=== PATIENT | female | born 1990 | race Caucasian/White ===

== ENCOUNTER → 2020-03-15 16:24 | Outpatient (CLI) | payer BC, OTHER, SELFPAY ==
--- NOTE | 2020-03-15 16:33 | XR_ITS ---
PROCEDURE: XR FOOT LT MIN 3V CLINICAL INDICATION: LT FOOT PAIN COMPARISON: No exams were available for comparison FINDINGS: No fracture or dislocation. No lytic or blastic change. There is normal mineralization. The joint spaces are well-preserved. No significant degenerative/arthritic changes. No erosive changes evident. Other findings:None. IMPRESSION: No acute findings. Dictated by: Lion Miranda MD 03/15/2020 17:50 Lion Miranda MD in OV 03/15/2020 17:50
== END ==
PROVIDERS: PCP Nurse Practitioner; Visit Provider Family Medicine
DX: M79.672 Pain in left foot (principal)
CPT/HCPCS: 73630

== ENCOUNTER → 2021-01-01 08:59 | Outpatient (CLI) | payer BC, OTHER, SELFPAY ==
[2021-01-01 09:31] LABS: Adenovirus,PCR Not Detected (NotDetected); Bordetella Pertussis Not Detected (NotDetected); Chlamydophila Pneumoniae, PCR Not Detected (NotDetected); Coronavirus 19, PCR Not Detected (NotDetected); Coronavirus 229E Not Detected (NotDetected); Coronavirus NL63 Not Detected (NotDetected); Coronavirus OC43 Not Detected (NotDetected); Coronovirus HKU1,PCR Not Detected (NotDetected); Human Metapneumovirus Not Detected (NotDetected); Influenza A, PCR Not Detected (NotDetected); Influenza AH1, 2009 Not Detected (NotDetected); Influenza AH1, PCR Not Detected (NotDetected); Influenza AH3,PCR Not Detected (NotDetected); Influenza B, PCR Not Detected (NotDetected); Mycoplasma Pneumoniae, PCR Not Detected (NotDetected); Parainfluenza 1, PCR Not Detected (NotDetected); Parainfluenza 2, PCR Not Detected (NotDetected); Parainfluenza 3, PCR Not Detected (NotDetected); Parainfluenza 4, PCR Not Detected (NotDetected); Rhinovirus/Enterovirus Not Detected (NotDetected)
[2021-01-01 20:37] LABS: Respiratory Syncytial Virus Detected (NotDetected)
== END ==
PROVIDERS: PCP Nurse Practitioner; Visit Provider Nurse Practitioner
DX: Z20.822 Contact with and (suspected) exposure to COVID-19 (principal); B97.4 Respiratory syncytial virus as the cause of diseases classified elsewhere
CPT/HCPCS: 87581; 87632; 87798; C9803; U0003; U0005

== ENCOUNTER → 2021-02-02 10:02 | Outpatient (CLI) | payer BC, OTHER, SELFPAY ==
[2021-02-02 10:36] LABS: Basophils # 0.1 K/mm3 (0-0.2); Basophils % 0.7 % (0.1-2.0); Eosinophils # 0.1 K/mm3 (0.0-0.4); Eosinophils % 0.8 % (0.1-12.0); Hematocrit 39.2 % (37.0-47.0); Hemoglobin 12.7 g/dL (12.2-16.2); Lymphocytes # 1.4 K/mm3 (0.7-4.5); Lymphocytes % 17.6 % (10-50); Mean Corpuscular HGB Conc 32.3 g/dL (31.8-35.4); Mean Corpuscular Hemoglobin 30.8 pg (27.0-31.2); Mean Corpuscular Volume 95.3 fl (81-99); Mean Platelet Volume 8.2 fl (7.4-10.4); Monocytes # 0.3 K/mm3 (0.1-1.0); Monocytes % 4.3 % (1.7-9.3); Neutrophils # 6.1 K/mm3 (1.8-7.8); Neutrophils % 76.6 % (37.0-80.0); Platelet Count 248 K/mm3 (142-424); Red Blood Count 4.11 M/mm3 (4.20-5.40); Red Cell Distribution Width 13.2 % (11.5-17.5); White Blood Count 7.9 K/mm3 (4.8-10.8)
[2021-02-02 10:39] LABS: Strep Scrn Group A (Rapid) Negative (Negative)
[2021-02-03 09:58] LABS: Adenovirus,PCR Not Detected (NotDetected); Bordetella Pertussis Not Detected (NotDetected); Chlamydophila Pneumoniae, PCR Not Detected (NotDetected); Coronavirus 229E Not Detected (NotDetected); Coronavirus NL63 Not Detected (NotDetected); Coronavirus OC43 Not Detected (NotDetected); Coronovirus HKU1,PCR Not Detected (NotDetected); Human Metapneumovirus Not Detected (NotDetected); Influenza A, PCR Not Detected (NotDetected); Influenza AH1, 2009 Not Detected (NotDetected); Influenza AH1, PCR Not Detected (NotDetected); Influenza AH3,PCR Not Detected (NotDetected); Influenza B, PCR Not Detected (NotDetected); Mycoplasma Pneumoniae, PCR Not Detected (NotDetected); Parainfluenza 1, PCR Not Detected (NotDetected); Parainfluenza 2, PCR Not Detected (NotDetected); Parainfluenza 3, PCR Not Detected (NotDetected); Parainfluenza 4, PCR Not Detected (NotDetected); Respiratory Syncytial Virus Not Detected (NotDetected); Rhinovirus/Enterovirus Not Detected (NotDetected)
== END ==
PROVIDERS: PCP Nurse Practitioner; Visit Provider Nurse Practitioner
DX: Z20.822 Contact with and (suspected) exposure to COVID-19 (principal)
CPT/HCPCS: 36415; 85025; 87430; 87486; 87581; 87632; 87798; C9803; U0003; U0005

== ENCOUNTER 2024-12-06 12:46 | Outpatient (CLI) | payer BC, OTHER, SELFPAY ==
--- OUTSIDE RECORDS SUMMARY | 2016-11-19 09:00 | XMS_ITS | Encounter Summary ---
Author Organization [place] [address] Care Team Providers Care Prison Officer Name Role Phone Everardo Yeh MD Primary Care Provider [phone] Encounter Details Date Type Department Care Team (Late st Contact Info) Description 11/19/2016 9:00 AM EDT Hospital [facility] [place] [address] Social History Tobacco Use Types Packs/Day Years Used Date Smoking Tobacco: Never Smokeless Tobacco: Never Alcohol Use Standard Drinks/Week Comments No 0 (1 standard drink = 0.6 oz pur e alcohol) Sexually Active Control Partners Comments Yes Male no contro l Comments No Sex and Gender Information Value Date Recorded Sex Assigned at Not on file Legal Sex Female 4:34 PM EDT Gender Identity Not on file Sexual Orientation Not on file COVID-19 Exposure Response Date Recorded In the last month, have you been in contact with someone who was confirmed or suspected to have Coronavirus / COVID-19? No / Unsure 09/25/2019 9:15 AM EDT documented as of this encounter Functional Status * Cognitive and Functional Status Question Answer Date of Assessment Author Is the person deaf or does he/she have serious difficulty hearing? No 01/15/2017 12:06 PM EDT Donald Matthews RN Is the person blind or does he/she have serious difficulty seeing even when wearing glasses? No 01/15/2017 12:06 PM EDT Donald Matthews RN Does this person have seriou s difficulty walking or climbing stairs? No 01/15/2017 12:06 PM EDT Donald Matthews RN Does this person have difficulty dressing or bathing? No 01/15/2017 12:06 PM EDT Mervat Hansen RN documented as of this encounter Mental Status * Cognitive and Functional Status Question Answer Entry Date Author Because of a physical, menta l or emotional condition, does this person have difficulty doing errands alone such as visiting a doctor's office or shopping? No 01/15/2017 12:06 PM EDT Donald Matthews RN Because of a physical, menta l or emotional condition, does this person have serious difficulty concentrating, remembering or making decisions? No 01/15/2017 12:06 PM EDT Donald Matthews RN documented in this encounter Plan of Treatment Upcoming Encounters Date Type Department Care Team (Late st Contact Info) Description 01/04/2025 9:30 AM EDT Office Visit [facility] [address] [address] Jeronimo Amor MD [address] [place] [address] documented as of this encounter Visit Diagnoses Not on filedocumented in this encounter Historical Medications * This list may reflect changes made after this encounter. cyanocobalamin 1,000 mcg Oral TabletIndications: prevention of vitamin B12 deficiency Take 1,000 mcg by mouth daily. vit-iron fum-folic ac 27 mg iron- 0.8 mg Oral TabletIndications: Take 1 Tab by mouth daily. added in this encounter Care Teams Prison Officer Relationship Specialty Start Date End Date Everardo Yeh MD PCP - General 04/16/09 11/16/23 documented as of this encounter
--- OUTSIDE RECORDS SUMMARY | 2019-08-09 09:00 | XMS_ITS | Encounter Summary ---
Author Organization [place] [address] Care Team Providers Care Patient Registration Manager Name Role Phone Everardo Yeh MD Primary Care Provider [phone] Encounter Details Date Type Department Care Team (Late st Contact Info) Description 08/09/2019 9:00 AM EDT Hospital Encounter ED[facility] [place] [address] Social History Tobacco Use Types Packs/Day Years [...] as of this encounter Functional Status * Is the person deaf or does he/she have serious difficulty hearing? Answer Date of Assessment Author No 01/15/2017 12:06 PM EDT Mervat Matthews RN * Is the person blind or does he/she have serious difficulty seeing even when wearing glasses? Answer Date of Assessment Author No 01/15/2017 12:06 PM EDT Mervat Matthews RN * Does this person have serious difficulty walking or climbing stairs? Answer Date of Assessment Author No 01/15/2017 12:06 PM EDT Mervat Matthews RN * Does this person have difficulty dressing or bathing? Answer Date of Assessment Author No 01/15/2017 12:06 PM EDMervat Luque RN * Because of a physical, mental or emotional condition, does this person have difficulty doing errands alone such as visiting a doctor's office or shopping? Answer Date of Assessment Author No 01/15/2017 12:06 PM EDMervat Luque RN documented as of this encounter Mental Status * Because of a physical, mental or emotional condition, does this person have serious difficulty concentrating, remembering or making decisions? Answer Entry Date Author No 01/15/2017 12:06 PM EDMervat Luque RN documented in this encounter Plan of Treatment Upcoming Encounters Date Type Department Care Team (Late st Contact Info) Description 01/04/2025 9:30 AM EDT Office Visit [facility] [address] [facility] [address] [place] [phone] Jeronimo Amor MD [address] [place] [address] documented as of this encounter Visit Diagnoses Not on filedocumented in this encounter Care Teams Patient Registration Manager Relationship Specialty Start Date End Date Everardo Yeh MD PCP - General 04/16/09 11/16/23 documented as of this encounter
--- OUTSIDE RECORDS SUMMARY | 2023-11-13 05:00 | XMS_ITS ---
Author Organization [facility] Address [address] [place] [address] Care Team Providers Care Speedboat Driver Name Role Phone Migration, Provider Unavailable Unavailable Allergies Allergen (clinical drug ingredient) Drug/Non Drug Allergy documented on EMR Reaction Allergy Type Onset Date Status Medications: SULFA (SULFONAMIDES) (uncoded) Unspecified Allergy Active Medications Medication SIG (Take, Route, Fr equency, Duration) Notes Start Date End Date Status Microgestin FE .09/08 1 tablet oral QD 12/26/2021 Active Norethindrone 1 tablet oral QD 10/30/2019 Active 1 tablet oral QD Act stephani Social History Tobacco Use: Social History Observation Description Date Smoking Status WARNING: Information temporarily unavailable Social History Drugs/Alcohol: Social Info Question Answer Notes Drugs Have you used drugs other than those for medical reasons in the past 12 months? Never 01/03/2021 - 02/23/2019 - 06/02/2016 - Alcohol Screen Did you have a drink containing alcohol in the past year? Never 01/03/2021 - 02/23/2019 - 06/02/2016 - Household: Social Info Question Answer Notes Household Marital status: Tobacco Use: Social Info Question Answer Notes Tobacco Control (Standard) Tobacco use: Never 0 01/03/2021 - 02/23/2019 - 01/01/2017 - 06/02/2016 - Encounters Encounter Location Date Provider Diagnosis [facility] [address] [place] [address] 11/13/2023 Provider Migration Plan Of Treatment No Information Progress Notes * Danny RICHARDSON EDOB: 0 (34 yo F)Acc No.[id number]:11/13/2023 Patient: Danny CARROLL :1990 A ge:33 Y S ex:Female Address:[address], 1929[facility] [facility] [place], [address] Subjective: * Chief Complaints: * Medical History: Nallely's thyroiditis: asymptomatic as of 05/28/2016. To be rechecked by Endo in 6 weeks. B12 deficiency Miscarriage within last 12 months: 12/2018 ADD (attention deficit disorder) 7 [place]: Flu Shot - Yes 7 [place]: Pneumococcal Vaccine - Yes 7 [place]: Self breast exam - No 01/03/2021 - [place]: Sexually active - Yes 01/03/2021 - [place]: TB Skin Test - Yes 7 [place]: Tetanus - Yes 01/03/2021 - [place]: Last Pap Smear [facility] Patient Portal Nov 13 2013 6:32AM: summer 2012 (normal results) 7 [place]: HPV Vaccine 01/03/2021 - 02/01/2015 - 2003 < 20% Lifetime Risk of Breast Cancer *PS - NEG * Welder Assistant History: M enstrual History: A ge of Onset: 1 2, LMP: 0 12/18/2020, Length Between Cycles: 2 8, Length of Flow: 5 , Flow Volume: M edium, Age began or LMP: 0 . S exual Activity/Contraception: C ontraception: O CPs. * OB History: P regnancy History (GPA) T otal Pregnancies 3 , F ull Term 1 , P remature?0, A B. Induced 0 , A B. Spontaneous 1 , E ctopics 0 , M ultiple Births 0 , L iving 1 . G P G ravida: 3 , P kameron: 1 . P regnancy # 1: A nesth :Epidural BirthDate :01/13/2018 BirthLbs :7 BirthOzs :9 Comment : Weight: 7.9 DeliveryType :Vaginal GA :40 LaborLength :6 Place :[facility]/EMT PTL :N Sex :F. P regnancy # 2: B irthDate :12/13/2018 Comment :SAB GA :8 PTL :N. * Surgical History: *No significant surgical past history * Family History: F amily History Verified.. Father: Hypercholesterolemia (Isolated), Grandmother (maternal): Family history of Alzheimer's disease, grandmother, Mother: Hypertension, Benign Essential, Major Depression, Anxiety Disorder, Generalized, Hypercholesterolemia (Isolated), Family history of Rhematoid Arthritis, Sister: Anxiety Disorder, Generalized, Family history of Nallely thyroiditis. * Medications: T akingMicrogestin FE 1.5/30 1 tablet oral QD ( Vit-Fe Fumarate- FA) 1 tablet oral QD Norethindrone 1 tablet oral QD Taking Microgestin FE 1.5/30 1 tablet oral QD Taking ( Vit-Fe Fumarate-FA) 1 tablet oral QD Taking Norethindrone 1 tablet oral QD * Allergies: M edications: SULFA (SULFONAMIDES): Unspecified - AllergyyesAllergies Verified. * * Date:
--- OUTSIDE RECORDS SUMMARY | 2024-12-06 12:48 | XMS_ITS | Encounter Summary ---
Author Organization [place] [address] Care Team Providers Care Speaker Mounter Name Role Phone Everardo Yeh MD Primary Care Provider [phone] Encounter Details Date Type Department Care Team (Latest Contact Info) Description 2019 Lab Requisition [facility] LABORATORY [facility] [place] [address] Elsa Ross MD [address] [place] [address] Carrier of group B Streptococcus Social History Tobacco Use Types Packs/Day Years Used Date Smoking Tobacco: Never Smokeless Tobacco: Never Alcohol Use Standard Drinks/Week Comments No 0 (1 standard drink = 0.6 oz pur e alcohol) Comments Yes Sex and Gender Information Value Date Recorded Sex Assigned at Not on file Legal Sex Female 4:34 PM EDT Gender Identity Not on file Sexual Orientation Not on file documented as of this encounter Functional Status [...] 12:06 PM EDT Mervat Matthews RN * Because of a physical, mental or emotional condition, does this person have difficulty doing errands alone such as visiting a doctor's office or shopping? Answer Date of Assessment Author No 01/15/2017 12:06 PM EDT Mervat Matthews RN documented as of this encounter Mental Status * Because of a physical, mental or emotional condition, does this person have serious difficulty concentrating, remembering or making decisions? Answer Entry Date Author No 01/15/2017 12:06 PM EDT Mervat Matthews RN documented in this encounter Plan of Treatment Upcoming Encounters Date Type Department Care Team (Late st Contact Info) Description 01/04/2025 9:30 AM EDT Office Visit [facility] [address] [facility] [address] [place] [phone] Jeronimo Amor MD [address] [place] [id number] documented as of this encounter Procedures Procedure Name Priority Date/Time Associated Diagnosis Comments STREP B DNA Routine 2019 4:53 PM EDT Carrier of group B Streptococcus documented in this encounter Results * (ABNORMAL) STREP B DNA (2019 4:53 PM EDT) Strep B DNA Detected(A ) Not Detected 09/01/2019 10:14 AM EDT [employer] Swab RECTUM AND VAGINA, CS / Unknown 2019 4:53 PM EDT 2019 7:04 PM EDT Narrative [employer] - 09/01/2019 10:14 AM EDT TEST INFORMATION: This qualitative assay utilizes molecular amplification to detect a portion of the Streptococcus agalactiae genome and is intended for a screen of antepartum women in 35-37 weeks gestation. A negative result does not rule out the presence the Group B Strep in concentrations below the limit of detection for the assay. Severe penicillin allergic patients should have clindamycin susceptibility testing performed. If this patient has a known penicillin allergy which is not documented in the EPIC chart, please notify Microbiology within one week at . Elsa Ross MD MICROBIOLOGY - GENERAL ORDER ISABEL Final Result PREFERRED [facility] [address] [place] [address] , [place] [address] documented in this encounter Visit Diagnoses Diagnosis Carrier of group B Streptococcus Carrier or suspected carrier of Group B streptococcus documented in this encounter Care Teams Speaker Mounter Relationship Specialty Start Date End Date Everardo Yeh MD PCP - General 04/16/09 11/16/23 documented as of this encounter
--- OUTSIDE RECORDS SUMMARY | 2024-12-06 12:48 | XMS_ITS | Clinical Summary ---
Author Organization [facility] Address [address] [place] [address] Care Team Providers Care Spa Manager/Esthetician Name Role Phone Unavailable Primary Care Provider Unavailabl e Immunizations Immunization Administration Dates Next Due Influenza, Unspecified 01/29/2015 PPD Skin Test (TB Skin Test) 05/10/2015, 04/17/2014,03/03/2013,02/08/2012, Social History Tobacco Use Types Packs/Day Years Used Date Smoking Tobacco: Never Assessed Comments Unknown Sex and Gender Information Value Date Recorded Sex Assigned at Not on file Legal Sex Female 6:02 PM EDT Gender Identity Not on file Sexual Orientation Not on file Last Filed Vital Signs Vital Sign Reading Time Taken Comments Blood Pressure - - Pulse - - Temperature - - Respiratory Rate - - Oxygen Saturation - - Inhaled Oxygen Concentration - - Weight 59.2 kg (130 lb 9.6 oz) 12/04/2014 5:03 P M EDT Height 162.6 cm (5' 4 ) 12/04/2014 5:03 PM EDT Body Mass Index 22.42 12/04/2014 5:03 PM EDT Plan of Treatment Health Maintenance Due Date Last Done Comments [facility]-Depression Screening 1989 [facility]-/Child/Adol SDOH Screenings 1989 [facility]-Varicella Vaccines (1 of 2 - 13+ 2-dose series) 2002 [facility]- SDOH Screenings 08/31/2007 [facility]-Adult SDOH Screenings 08/31/2007 [facility]-DTaP,Tdap,and Td Vaccine s (1 - Tdap) 2008 [facility]-Hepatitis B Vaccines (1 of 3 - 19+ 3-dose series) 2008 [facility]-Pap Smear 2010 HPV Vaccines (1 - 3-dose SCD M series) 2016 [facility]-Cervical Cancer Screening 08/31/2019 [facility]-HPV/Cotest 08/31/2019 [id number] Vaccine ( 20 24-25 season) 2023 [facility]-Influenza Vaccine (#1) 2024 01/29/2015 [facility]-Zoster Vaccines (1 of 2) 08/31/2039 [facility]-HIB Vaccines Aged Out No longer e ligible based on patient's age to complete this topic [facility]-Hepatitis A Vaccines Aged Out No longer eligible based on patient's age to complete this topic [facility]-IPV Vaccines Aged Out No longer e ligible based on patient's age to complete this topic [facility]-Pneumococcal Vaccine: Pediatrics (0 to 5 Years) and At-Risk Patients (6 to 49 Years) Aged Out No long er eligible based on patient's age to complete this topic [facility]-Rotavirus Vaccines Aged Out No lo nger eligible based on patient's age to complete this topic
--- OUTSIDE RECORDS SUMMARY | 2024-12-06 12:48 | XMS_ITS | Patient Health Record ---
Author Organization [facility] Address [address] [facility] [address] [place] [address] Care Team Providers Care Take Out Waitress Name Role Phone Migration, Provider Unavailable Unavailable Allergies Allergen (clinical drug ingredient) Drug/Non Drug Allergy documented on EMR Reaction Allergy Type Onset Date Status Medications: SULFA (SULFONAMIDES) (uncoded) Unspecified Allergy Active Reason For Referral No Information Medications Medication SIG (Take, Route, Fr equency, Duration) Notes Start Date End Date Status Microgestin FE .09/08 1 tablet oral QD 12/26/2021 Active Norethindrone 1 tablet oral QD 10/30/2019 Active 1 tablet oral QD Act stephani Social History Social History Sexual History: Social Info Question Answer Notes Sexual History Had sex in the past 12 months (vaginal, oral, or anal)? Yes Drugs/Alcohol: Social Info Question Answer Notes Drugs Have you used drugs other than those for medical reasons in the past 12 months? No Alcohol Screen Did you have a drink containing alcohol in the past year? Yes Points 0 Interpretation Negative Tobacco Use: Social Info Question Answer Notes Tobacco Use/Smoking Are you a former smoker Tobacco use other than smoking: Are you an other tobac co user? No Plan Of Treatment No Information Medical (General) History Medical History History ICD Code Nallely's thyroiditis: asy mptomatic as of 05/28/2016. To be rechecked by Endo in 6 weeks. B12 deficiency Miscarriage within last 12 months: 9 ADD (attention deficit disorder) 7 [place]: Flu Shot - Yes 7 [place]: Pneumococcal Vaccine - Yes 7 [place]: Self breast exam - No 1 - 7 [place]: Sexually active - Yes 1 - 7 [place]: TB Skin Test - Yes 7 [place]: Tetanus - Yes 01/03/2021 - 7 [place]: Last Pap Smear [facility] Patient Portal Nov 13 2013 6:32AM: summer 2012 (normal results) 7 [place]: HPV Vaccine 01/03/2021 - 2014 - 2003 < 20% Lifetime Risk of Breast Cancer *PS - NEG Surgical History Surgery Date(Month/Year) *No significant surgical past history
--- OUTSIDE RECORDS SUMMARY | 2024-12-06 12:49 | XMS_ITS | Clinical Summary ---
Author Organization [facility] Address [address] [place] [address] Phone Care Team Providers Care Airline Ticket Agent Name Role Phone Unavailable Primary Care Provider Unavailabl e Allergies Active Allergy Reactions Criticality Noted Date Comments Sulfa (Sulfonamide Antibiotics) Rash Medications vit-iron fum-folic ac 27 mg iron- 0.8 mg Oral TabletIndicatio ns: Take 1 Tab by mouth daily. Active cyanocobalamin 1,000 mcg Oral TabletIndicatio ns:prevention of vitamin B12 deficiency Take 1,000 mcg by mouth daily. Active ibuprofen (ADVIL;MOTRIN) 600 mg Oral Tablet Take 1 Tab by mouth every 6 hours as needed for Pain. 30 Tab 2 09/26/2019 Active acetaminophen (TYLENOL) 500 mg Oral Tablet Take 2 Tabs by mouth every 6 hours as needed for Pain. 30 Tab 2 09/26/2019 Active VYVANSE 30 mg Oral Capsule Take 1 Capsule by mouth daily. 08/13/2021 Active norethindrone-e thinyl estradiol-iron (BLISOVI FE 1.5/30, 28,) 1.5 mg-30 mcg (21)/75 mg (7) Oral Tablet TAKE 1 TABLET BY MOUTH DAILY NEED TO MAKE APPT 84 Tablet 2 08/28/2024 Active Active Problems No known active problems Immunizations Immunization Administration Dates Next Due Tdap 11/19/2016,04/12/2007 Surgical History Surgery Date Site/Laterality Comments DENTAL SURGERY wisdom teeth extraction Medical History Medical History Date Comments Thyroid disease Hashimotos Family History Medical History Relation Name Comments Heart Disease Father High Cholesterol Father Early Maternal Grandfather tractor accident Alzheimer's Disease Maternal Grandmother Arthritis Mother Depression Mother High Blood Pressure Mother High Cholesterol Mother Heart Disease Paternal Grandfather Dementia Paternal Grandmother Breast Cancer Neg Hx Colon Cancer Neg Hx Relation Name Status Comments Father Alive Maternal Grandfather Maternal Grandmother Mother Alive Paternal Grandfather Paternal Grandmother Alive Sister Alive Social History Tobacco Use Types Packs/Day Years [...] on file Sexual Orientation Not on file Obstetrics History Para Term AB IAB SAB Ectopic Multiple Livin g Live Births 3 2 2 1 1 0 2 2 Date Outcome GA Total Labor Labor/2nd/3rd Weight Sex Type Anes PTL Shelia A1 A5 Name Clin 2016 Term 40w 3d 0h 04m 0h 04m 7 lb 6.2 oz (3.35 kg) F Vag-S pont Epidur al N Livin g 9 9 Riddhi Barnett MD Complications:Post-dates pre gnancy Delivery Location:[facility] ([facility]) 2018 SAB 8w0 d 2019 Term 39w 5d 0h 06m 0h 06m 7 lb 7 oz (3.374 kg) F Vag-S pont Epidur al N Livin g 9 9 ISMAEL HENDRICKS BABY Alma Best MD Delivery Location:[facility] Last Filed Vital Signs Vital Sign Reading Time Taken Comments Blood Pressure 96/54 05/17/2024 2:03 PM EST Pulse 86 01/05/2024 1:01 PM EDT Temperature 36.8 C (98.2 F) 09/26/2019 2:55 PM EDT Respiratory Rate 16 01/05/2024 1:01 PM EDT Oxygen Saturation 100% 11/14/2010 4:38 PM EDT Inhaled Oxygen Concentration - - Weight 65.2 kg (143 lb 12.8 oz) 05/17/2024 2:03 PM EST Height 161.9 cm (5' 3.75 ) 05/17/2024 2:03 PM ES T Body Mass Index 24.88 05/17/2024 2:03 PM EST Plan of Treatment Upcoming Encounters Date Type Department Care Team (Late st Contact Info) Description 01/04/2025 9:30 AM EDT Office Visit [facility] [place] [address] [facility] [address] [place] [address] Jeronimo Amor MD [address] [place] [address] Health Maintenance Due Date Last Done Comments Annual Wellness Exam 1992 Hepatitis B Vaccine (1 of 3 - 19+ 3-dose series) 2008 COVID-19 Vaccine ( season) 2023 03/24/2022, 02/07/2021, 05/15/2020, Additional history exists Influenza Vaccine (#1) 2024 8, 12/16/2015, 12/29/2012 DTaP/TDaP/Td (3 - Td or Tdap) 11/19/2026 11/19/2016, 04/12/2007 Pap Smear 05/17/2027 05/17/2024, 12/12, 11/28/2018, Additional history exists Cervical Cancer Screening 05/17/2029 HPV/Pap Cotest 05/17/2029 05/17/2024 Meningococcal B Vaccine Aged Out No l onger eligible based on patient's age to complete this topic Pneumococcal Vaccine 0-49 Aged Out No longer eligible based on patient's age to complete this topic Procedures Procedure Name Priority Date/Time Associated Diagnosis Comments ALKYLATION OPERATOR CYTOLOGY REQUEST (PAP ONLY) Routine 05/17/2024 2:18 PM EST Well woman exam with routine gynecological exam Cervical cancer screening Screening for HPV (human papillomavirus) from Last 3 Months or Most Recently Relevant to Health Maintenance Results * ALKYLATION OPERATOR CYTOLOGY REQUEST (PAP ONLY) (05/17/2024 2:18 PM EST) CASE REPORT Gynecologic Cytology Report Case: [id number] Authorizing Provider: Aj Curran MD Collected: 05/17/2024 1418 Ordering [facility]: [facility] Received: 05/17/2024 1418 First Screen: Nathaly Bonilla CT Specimen: LIQUID-BASED PAP - CERVICAL/ENDOCERV ICAL, Cervix, Endocervical 05/22/2024 3:21 PM EST [facility] PAP FINAL DIAGNOSIS Negative for intraepithelial lesion or malignancy 05/22/2024 3:21 PM EST [facility] at 1521 EST MICROSCOPIC DESCRIPTION Microscopic examination is performed and the findings corroborate the diagnosis. 05/22/2024 3:21 PM EST [facility] PAP SMEAR ADEQUACY Satisfactory for evaluation 05/22/2024 3:21 PM EST [facility] ENDOCERVICAL T-ZONE Transformation zone present 05/22/2024 3:21 PM EST [facility] EMBEDDED IMAGES 3:21 PM EST [facility] PAP DISCLAIMER The Pap Smear is a screening test that aids in the detection of cervical cancer and cancer precursors. Both false positive and false negative results can occur. The test should be used at regular intervals, and positive results should be confirmed before definitive therapy. Processed using the ThinPrep Funeral Service Manager Automated cytology screening device ([employer]). 05/22/2024 3:21 PM EST [facility] PAP OTHER FINDINGS Many acute inflammatory cells noted. 05/22/2024 3:21 PM EST [facility] Thin Prep ENDOCERVICAL STRUCTURE / Unknown 05/17/2024 2:18 PM EST 05/17/2024 2:18 PM EST us Aj Curran MD CYTOLOGY ORDERABLES Final Resul t [facility] [address] [facility] [address] [place] [address] from Last 3 Months or Most Recently Relevant to Health Maintenance Insurance [employer] PPO [employer] PPO Advance Directives For more information, please contact: [phone] * Full Code (Latest Code Status on File) Date Activated Date Inactivated Comments 09/26/2019 10:26 AM 09/26/2019 8:48 PM * Full Code Date Activated Date Inactivated Comments 09/25/2019 8:17 AM 09/25/2019 4:07 PM * Full Code Date Activated Date Inactivated Comments 01/12/2017 7:19 PM 01/15/2017 5:50 PM
--- OUTSIDE RECORDS SUMMARY | 2024-12-06 12:49 | XMS_ITS | Clinical Summary ---
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 Active amoxicillin (AMOXIL) 500 mg capsule Take 1 Cap by mouth 3 times daily. 30 Cap 0 01/15/2016 Active lisdexamfetamine (VYVANSE) 30 mg CapsuleIndications :Attention deficit hyperactivity disorder (ADHD), unspecified ADHD type Take 1 Cap by mouth daily. May fill 03/21/16 30 Cap 0 02/20/2016 Active Active Problems Problem Noted Date Diagnosed Date Thyroid disease Immunizations Immunization Administration Dates Next Due Influenza 12/14/2017,12/29/2012 Influenza (whole) 12/21/2016,02/11/2012 Family History Relation Name Status Comments Father Alive Mother Alive Sister Alive Social History Tobacco Use Types Packs/Day Years Used Date Smoking Tobacco: Never Smokeless Tobacco: Never Tobacco Cessation:Counseling Given: Yes Comments:not needed Alcohol Use Standard Drinks/Week Comments No 0 (1 standard drink = 0.6 oz pur e alcohol) Comments No Sex and Gender Information Value Date Recorded Sex Assigned at Not on file Legal Sex Female 7:20 PM EST Gender Identity Not on file Sexual Orientation Not on file Last Filed Vital Signs Vital Sign Reading Time Taken Comments Blood Pressure 110/70 06/19/2015 3:15 PM EST Pulse 106 06/19/2015 3:15 PM EST Temperature 36.9 C (98.4 F) 06/19/2015 3:15 PM EST Respiratory Rate 16 04/15/2012 9:12 AM EST Oxygen Saturation 97% 06/19/2015 3:15 PM EST Inhaled Oxygen Concentration - - Weight 60.8 kg (134 lb) 06/19/2015 3:15 PM EST Height 162.6 cm (5' 4 ) 12/27/2014 4:51 PM EDT Body Mass Index 23 12/27/2014 4:51 PM EDT Plan of Treatment Health Maintenance Due Date Last Done Comments Lipid Screening 08/31/2007 Cervical Cancer Screening 2010 COVID-19 Vaccine ( season) 2023 Depression Screening 04/12/2024 Influenza Vaccination (#1) 12/11/202412/14, 12/21/2016, 12/29/2012, Additional history exists Tetanus Vaccination (Every 10 Years) 11/19/2026 11/19/2016, 04/12/2007 Influenza Vaccination (Yearly) Discontinued 12/14/2017, 12/21/2016, 12/29/2012, Additional history exists HPV Vaccine Aged Out No longer eligi ble based on patient's age to complete this topic Insurance Care Teams Electric Shovel Operator Relationship Specialty Start Date End Date None, None [address] [place] [address] PCP - General 02/28/19
--- NOTE | 2024-12-06 13:00 | US_ITS ---
FINAL REPORT TECHNIQUE: Ultrasound examination in the region of interest in the upper back. CLINICAL HISTORY: pal area upper back COMPARISON: None FINDINGS: SOFT TISSUE ULTRASOUND: There is an elliptical hypoechoic lesion in the area of interest in the soft tissues of the upper back, which measures 4.9 cm. This mass is well-circumscribed and avascular, and is nonspecific but may represent a lipoma. No other masses are identified. IMPRESSION: In the area of interest, there is a hypoechoic avascular well-circumscribed lesion, that is nonspecific but may represent a lipoma. Reviewed, Interpreted and Dictated by Atiya Pereira MD Transcribed by Richelle Martinez Authenticated and [facility]
== END 2024-12-06 23:59 | disposition home or self-care (01) ==
LOC: RAD 12:46
PROVIDERS: PCP Nurse Practitioner; Visit Provider Nurse Practitioner
DX: L98.8 Other specified disorders of the skin and subcutaneous tissue (principal)
CPT/HCPCS: 76604